=== PATIENT | female | born 1960 | race American Indian/Alaskan Native ===

== ENCOUNTER 2018-03-06 08:33 | Observation (INO) | payer OTHER ==
[2018-03-06] MEDS ORDERED: Metoprolol 1 mg/ml Inj IVP STA (08:55)
--- NOTE | 2018-03-06 09:01 | ED PDOC ---
Arrival/HPI - General Chief Complaint: Chest Pain Time Seen by Provider: 03/06/18 08:41 Historian: Patient - History of Present Illness Narrative History of Present Illness (Text): 03/06/18 08:50 58 year old female, whose PMH includes atrial fibrillation (on Aspirin and Metoprolol 25mg), who presents to the emergency department complaining of palpitations since 4 days ago. Patient reports she has been non-compliant with her medication and missed a dose on Friday causing her to experience pressure on chest. Patient denies shortness of breath, nausea, vomiting, diarrhea, abdominal pain, chills, fever, or other complaints. PMD: Dr. Knight Time/Duration: < week Symptom Onset: Gradual Symptom Course: Unchanged Quality: Pressure Context: Home Past Medical History - Provider Review Nursing Documentation Reviewed: Yes - Infectious Disease Hx of Infectious Diseases: None - Tetanus Immunization Tetanus Immunization: Unknown - Cardiac Hx Cardiac Disorders: Yes Hx Atrial Fibrillation: Yes Hx Cardiac Arrhythmia: Yes (HAD HX. A-FIB CONVERTED ON OWN TO RSR) - Pulmonary Hx Respiratory Disorders: No - Neurological Hx Neurological Disorder: No - HEENT Hx HEENT Disorder: No - Renal Hx Renal Disorder: No - Endocrine/Metabolic Hx Endocrine Disorders: No - Hematological/Oncological Hx Blood Disorders: No - Integumentary Hx Dermatological Disorder: No - Musculoskeletal/Rheumatological Hx Musculoskeletal Disorders: Yes Hx Falls: No Other/Comment: HX: LEFT KNEE SURGERY - Gastrointestinal Hx Gastrointestinal Disorders: No - Genitourinary/Gynecological Hx Genitourinary Disorders: Yes Hx Urinary Tract Infection: Yes Other/Comment: HX: SUBMUCOUS MYOMA OF UTERUS, POST COITAL BLEEDING. HX: OVERACTIVE BLADDER - Psychiatric Hx Psychophysiologic Disorder: No Hx Substance Use: No - Surgical History Hx Orthopedic Surgery: Yes (L knee) Other/Comment: HX: MYOMECTOMY - Anesthesia Hx Anesthesia: Yes Hx Anesthesia Reactions: No Hx Malignant Hyperthermia: No - Suicidal Assessment Feels Threatened In Home Enviroment: No Family/Social History - Physician Review Nursing Documentation Reviewed: Yes Family/Social History: Unknown Family HX Smoking Status: Former Smoker Hx Alcohol Use: Yes Frequency of alcohol use: Socially Hx Substance Use: No Hx Substance Use Treatment: No Allergies/Home Meds Allergies/Adverse Reactions: Allergies No Known Allergies Allergy (Verified 03/06/18 08:42) Home Medications: Home Meds Medication Instructions Recorded Confirmed RX: Aspirin [Aspirin EC] 81 mg PO DAILY 05/20/15 03/06/18 RX: Metoprolol Succinate XL 25 mg PO DAILY 05/20/15 03/06/18 [Toprol XL] Review of Systems - Review of Systems Constitutional: absent: Fevers Eyes: absent: Vision Changes Respiratory: absent: SOB, Cough Cardiovascular: Palpitations, Other (chest pressure ) Gastrointestinal: absent: Abdominal Pain, Vomiting Genitourinary Female: absent: Dysuria Musculoskeletal: absent: Back Pain Skin: absent: Rash Neurological: absent: Headache, Dizziness Endocrine: absent: Diaphoresis Physical Exam Vital Signs Reviewed: Yes Vital Signs Temp Pulse Pulse Resp BP BP Pulse Ox 03/06/18 09:18 81 15 149/83 100 03/06/18 09:00 110 H 149/83 03/06/18 08:42 98.4 F 107 H 18 146/94 H 100 Temperature: Afebrile Blood Pressure: Hypertensive Pulse: Tachycardic Respiratory Rate: Normal Appearance: Positive for: Well-Appearing, Non-Toxic, Comfortable Pain Distress: None Mental Status: Positive for: Alert and Oriented X 3 - Systems Exam Head: Present: Atraumatic, Normocephalic Pupils: Present: PERRL Extroacular Muscles: Present: EOMI Conjunctiva: Present: Normal Respiratory/Chest: Present: Clear to Auscultation, Good Air Exchange. No: Respiratory Distress, Accessory Muscle Use, Wheezes, Decreased Breath Sounds, Rales, Retracting, Rhonchi Cardiovascular: Present: Irregular Rhythm, Tachycardic. No: Regular Rate and Rhythm, Murmurs, Normal S1, S2 Abdomen: Present: Normal Bowel Sounds. No: Tenderness, Distention, Peritoneal Signs, Rebound, Guarding Lower Extremity: Present: Normal Inspection, NORMAL PULSES, Normal ROM, Neurovascularly Intact, Capillary Refill < 2 s. No: Edema, Cyanosis, Tenderness , Swelling, Erythema, Deformity Neurological: Present: GCS=15, CN II-XII Intact, Speech Normal Skin: Present: Warm, Dry, Normal Color. No: Rashes Psychiatric: Present: Alert, Oriented x 3, Normal Insight, Normal Concentration Medical Decision Making ED Course and Treatment: 03/06/18 Impression: 58 year old female with irregular heart rate and tachycardia complaining of palpitations and chest pressure since 4 days. Differential Diagnosis included but are not limited to: atrial fibrillation secondary to non compliance with medication Plan: -- EKG -- Labs -- Chest X-ray -- Lopressor -- Reassess and disposition Progress Notes: EKG: Ordered, reviewed, and independently interpreted the EKG. Rate : 105 BPM Rhythm : afib Interpretation : No ST-segment elevations or depressions, no T-wave inversions, normal intervals. Comparison : No previous EKG for comparison. 03/06/18 10:10 Patient has been getting in the ED intermittent elevations of HR to about 140' s. She gets symptomatic and then the HR comes back down to 110 and then steady in the 90's. Despite taking her meds regularly the past couple of days her HR doesn't seem to get controlled. I discussed the case with Dr. Knight who will place her on Observation for Chest Pain, Rapid Atrial Fibrillations. Requesting Dr. Jackson for Cardiology. - Lab Interpretations Lab Results: 03/06/18 09:00 03/06/18 09:00 Lab Results 03/06/18 09:00: Sodium 144, Potassium 4.2, Chloride 107, Carbon Dioxide 23, Anion Gap 18, BUN 15, Creatinine 0.6 L, Est GFR ( Amer) > 60, Est GFR ( Non-Af Amer) > 60, Random Glucose 123 H, Calcium 9.5, Magnesium 1.9, Total Bilirubin 0.4, AST 27, ALT 33, Alkaline Phosphatase 107, Lactate Dehydrogenase 548, Total Creatine Kinase 95, Troponin I < 0.01, Total Protein 7.5, Albumin 4.2 , Globulin 3.3, Albumin/Globulin Ratio 1.3 03/06/18 09:00: WBC 6.0, RBC 5.37, Hgb 13.9, Hct 41.8, MCV 77.8 L D, MCH 25.9, MCHC 33.3, RDW 13.8, Plt Count 268, MPV 10.1, Gran % 44.9 L, Lymph % (Auto) 44.4 H, Carver % (Auto) 8.5 H, Eos % (Auto) 1.7, Baso % (Auto) 0.5, Gran # 2.71, Lymph # (Auto) 2.7, Carver # (Auto) 0.5, Eos # (Auto) 0.1, Baso # (Auto) 0.03 I have reviewed the lab results: Yes - RAD Interpretation Radiology Orders: 03/06/18 08:55 CHEST PORTABLE [RAD] Stat Forensic Audit Expert: Radiologist - EKG Interpretation Interpreted by ED Physician: Yes Type: 12 lead EKG - Scribe Statement The provider has reviewed the documentation as recorded by the Dellibe Rhianna Ball Provider Scribe Attestation: All medical record entries made by the Scribe were at my direction and personally dictated by me. I have reviewed the chart and agree that the record accurately reflects my personal performance of the history, physical exam, medical decision making, and the department course for this patient. I have also personally directed, reviewed, and agree with the discharge instructions and disposition. Disposition/Present on Arrival - Present on Arrival Any Indicators Present on Arrival: No History of DVT/PE: No History of Uncontrolled Diabetes: No Urinary Catheter: No History of Decub. Ulcer: No History Surgical Site Infection Following: None - Disposition Have Diagnosis and Disposition been Completed?: Yes Diagnosis: Rapid atrial fibrillation, Chest pain Disposition: HOSPITALIZED Disposition Time: 10:11 Patient Plan: Observation Condition: FAIR Discharge Instructions (ExitCare): Chest Pain (ED) Referrals: Ehsan Knight DO [Primary Care Provider] - Follow up with primary Forms: [facility] ([place]z)
[2018-03-06 09:22] LABS: BASO # 0.03 K/mm3 (0.0-2.0); BASO % 0.5 % (0.0-3.0); EOS # 0.1 (0.0-0.7); EOS % 1.7 % (1.5-5.0); GRAN # 2.71 (1.4-6.5); GRAN % 44.9 % (50.0-68.0); HEMOGLOBIN 13.9 g/dL (12.0-16.0); LYMPH # 2.7 (1.2-3.4); LYMPH % 44.4 % (22.0-35.0); MEAN CELL VOLUME 77.8 fl (80.0-105.0); MEAN CORPUSCULAR HEMOGLOBIN 25.9 pg (25.0-35.0); MEAN CORPUSCULAR HGB CONC 33.3 g/dl (31.0-37.0); MEAN PLATELET VOLUME 10.1 fl (7.0-11.0); MONO # 0.5 (0.1-0.6); MONO % 8.5 % (1.0-6.0); RBC 5.37 10^6/uL (3.5-6.1); RED CELL DISTRIBUTION WIDTH 13.8 % (11.5-14.5)
[2018-03-06 09:38] LABS: ALB/GLOB RATIO 1.3 (1.1-1.8); ALBUMIN 4.2 g/dL (3.0-4.8); ALT/SGPT 33 U/L (7-56); AST/SGOT 27 U/L (14-36); BLOOD UREA NITROGEN 15 mg/dL (7-21); CALCIUM 9.5 mg/dL (8.4-10.5); GFR AFRICAN-AMERICAN > 60; GFR NON-AFRICAN AMERICAN > 60
[2018-03-06 09:46] LABS: TROPONIN I < 0.01 ng/mL
--- NOTE | 2018-03-06 10:19 | RAD ---
HISTORY: chest pain COMPARISON: No prior. FINDINGS: LUNGS: No active pulmonary disease. PLEURA: No significant pleural effusion identified, no pneumothorax apparent. CARDIOVASCULAR: Normal. OSSEOUS STRUCTURES: No significant abnormalities. VISUALIZED UPPER ABDOMEN: Normal. OTHER FINDINGS: None. IMPRESSION: No active disease.
[2018-03-06] MEDS: Enoxaparin 80 mg Syringe SC SCH (10:57)
[2018-03-06 14:04] VITALS: BMI 30.4
[2018-03-06] MEDS ORDERED: Pneumococcal 23-Valent Vaccine IM ONE (14:04)
--- NOTE | 2018-03-06 16:55 | CON ---
DATE: 03/06/2018 CARDIOLOGY CONSULTATION HISTORY OF PRESENT ILLNESS: The patient is a 58-year-old woman who presents with 1 week of palpitations. She was found to be in atrial fibrillation in the emergency room. PAST MEDICAL HISTORY: Notable for chronic atrial fibrillation, in which she was sent home after workup on aspirin and beta-blockers. This has been going on for 3 years. It has been well controlled until recently when the patient has been noncompliant with her medications. The patient suffers from hypertension. She also suffers from palpitations. No chest pain, no shortness of breath. She denies diabetes mellitus. No previous myocardial infarction. SOCIAL HISTORY: The patient does not smoke. REVIEW OF SYSTEMS: Review of systems was performed in detail. Other than the palpitations, there are no other symptomatology noted. PHYSICAL EXAMINATION VITAL SIGNS: Blood pressure is 145/88, heart rate is in the 90s, atrial fibrillation. NECK: Negative JVD. LUNGS: Without rales. HEART: Reveals S1 and S2. EXTREMITIES: Without edema. EKG shows atrial fibrillation with nonspecific ST-T changes. LABORATORY DATA: Laboratories were reviewed and were unremarkable. IMPRESSION: 1. Paroxysmal atrial fibrillation. 2. Noncompliance with medications. 3. History of hypertension. 4. Palpitations. PLAN: Given these findings, we will start the patient on carvedilol. Subcu Lovenox has been ordered. I have discussed her need for compliance with the patient as well as the potential complications with atrial fibrillation. If the patient does not convert, we would consider DON and cardioversion. If medication does not convert the patient in normal sinus rhythm, we will also discuss with the patient about other therapeutic modalities such as ablation. Anson Jackson MD
--- NOTE | 2018-03-06 22:34 | HP ---
HISTORY OF PRESENT ILLNESS: I was called to the ER to evaluate Ms. Amalia Weaver. She comes in, not feeling well. She is having palpitations for 4 days. She also reports being very noncompliant with her medication, although she told the ER doctor she missed Friday. She missed many more doses after that and has really been very much noncompliant on metoprolol and her aspirin which is supposed to be on for atrial fibrillation. PAST MEDICAL HISTORY: She had a history of atrial fibrillation converted onto regular sinus rhythm. She is taking metoprolol and aspirin. She had left knee surgery in the past. She has a history of submucosal myoma of the uterus, post coital bleeding, history of overactive bladder, left knee surgery, myomectomy. FAMILY HISTORY: Unknown. SOCIAL HISTORY: Former smoker. She does drink alcohol socially. No substance abuse. ALLERGIES: NO KNOWN DRUG ALLERGIES. MEDICATIONS: She is on aspirin 81 mg a day and metoprolol succinate (Toprol XL) 25 mg one daily. REVIEW OF SYSTEMS: No fevers. No acute vision changes or hearing changes. No shortness of breath or cough, but there are palpitations and occasional chest pressure. No abdominal pain, nausea, vomiting, constipation, or diarrhea. No problems urinating. No back pain. No skin rashes or ulcers that she knows of. No headaches or dizziness. No sweating. No anxiety. PHYSICAL EXAMINATION: VITAL SIGNS: She has 98.4 temperature; 107, also 110, and also 144 pulse in the ER; 146/94 blood pressure; 18 respiratory rate; 100% O2 sat on room air. GENERAL: She is well-appearing, nontoxic, comfortable, little bit concerned about the heart rate and the palpitations. She is alert and oriented x3. HEENT: Head is atraumatic, normocephalic. Extraocular muscles are intact. Pupils are equal and reactive to light. Throat is moist. NECK: Supple. HEART: Irregular rate, tachycardic. LUNGS: Decreased breath sounds, but clear to auscultation. No wheezes, no rhonchi, no rales. ABDOMEN: Soft, nontender. Positive bowel sounds. EXTREMITIES: No edema. She can move all 4 extremities. NEUROLOGIC: GCS is 15. Cranial nerves are II through XII grossly intact. Speech is normal. SKIN: Warm and dry. No apparent ulcers or rashes appreciated. PSYCHIATRIC: Alert and oriented x3. LYMPHATICS: Thyroid midline. No palpable appreciable lymphadenopathy. LABORATORY DATA: She had multiple tests. She has a 6 white count, 13.9 hemoglobin, 41.8 hematocrit with 268 platelets. Sodium 144, potassium 4.2. BUN creatinine 0.6. GFR is greater than 60. Sugar is 123. Calcium is 9.5, magnesium 1.9. Total bilirubin is 0.4, AST is 27, ALT is 33, alkaline phosphatase 107. Lactate dehydrogenase is 548. Total creatinine kinase is 95. Troponin I is less than 0.01. Total protein 7.5, albumin is 4.2. Chest x-ray was no active disease. ASSESSMENT AND PLAN: She has been being put on Betapace 80 mg twice a day by Dr. Jackson and Lovenox 70 mg subcu every 24 hours. She is in observation status right now. We are hoping to watch her on telemetry overnight to make sure she converts into regular sinus rhythm if possible, all these will kept her atrial fibrillation into a less rapid rate. The patient understands this. Rapid atrial fibrillation and also noncompliant with her medications. Ehsan Knight DO MTDD
[2018-03-07 07:01] VITALS: O2SAT 99
[2018-03-07 07:10] LABS: HEMOGLOBIN 13.2 g/dL (12.0-16.0); MEAN CELL VOLUME 78.9 fl (80.0-105.0); MEAN CORPUSCULAR HGB CONC 32.9 g/dl (31.0-37.0); RBC 5.08 10^6/uL (3.5-6.1); RED CELL DISTRIBUTION WIDTH 13.9 % (11.5-14.5); WHITE BLOOD COUNT 3.6 10^3/ul (4.5-11.0)
[2018-03-07 07:27] LABS: ALB/GLOB RATIO 1.3 (1.1-1.8); ALBUMIN 3.7 g/dL (3.0-4.8); ALT/SGPT 34 U/L (7-56); AST/SGOT 24 U/L (14-36); BLOOD UREA NITROGEN 16 mg/dL (7-21); CALCIUM 9.2 mg/dL (8.4-10.5); GFR AFRICAN-AMERICAN > 60; GFR NON-AFRICAN AMERICAN > 60
--- NOTE | 2018-03-07 09:00 | CARD ---
APPROVED REPORT EKG Measurement Heart [id number] <Conclusion> Atrial fibrillation is new PRWP, possible lead placement
[2018-03-07] MEDS: Enoxaparin 80 mg Syringe SC SCH (10:07)
[2018-03-07 12:18] VITALS: PULSE 68
--- NOTE | 2018-03-07 12:39 | CARD ---
APPROVED REPORT EXAM: Two-dimensional and M-mode echocardiogram with Doppler and color Doppler. INDICATION 2D DIMENSIONS IVSd0.6 (0.7-1.1cm)LVDd4.9 (3.9-5.9cm) PWd0.8 (0.7-1.1cm)LVDs3.1 (2.5-4.0cm) FS (%) 36.0 %LVEF (%)65.4 (>50%) M-Mode DIMENSIONS Left Atrium (MM)3.20 (2.5-4.0cm)Aortic Root3.10 (2.2-3.7cm) Aortic Cusp Exc.2.20 (1.5-2.0cm) Aortic Valve AoV Peak Nfuwkjoy108.0cm/Lee Peak GR.10mmHg Mitral Valve MV E Jnfcfogn75.6cm/sMV A Xsxyjoie75.7cm/sE/A ratio1.5 TDI Lateral E' Peak V11.70cm/sMedial E' Peak V9.46cm/sE/Lateral E'6.0 E/Medial E'7.5 Tricuspid Valve TR Peak [id number]/sRAP [id number] Peak Gr.28mmHg [id number] LEFT VENTRICLE The left ventricle is normal size. There is normal left ventricular wall thickness. The left ventricular function is normal. The left ventricular ejection fraction is within the normal range. There is normal LV segmental wall motion. The left ventricular diastolic function is normal. RIGHT VENTRICLE The right ventricle is normal size. There is normal right ventricular wall thickness. The right ventricular systolic function is normal. ATRIA The left atrium size is normal. The right atrium size is normal. AORTIC VALVE The aortic valve is normal in structure. No aortic regurgitation is present. There is no aortic valvular stenosis. MITRAL VALVE The mitral valve is normal in structure. There is no mitral valve regurgitation noted. There is no mitral valve stenosis. TRICUSPID VALVE The tricuspid valve is normal in structure. There is mild pulmonary hypertension. PULMONIC VALVE The pulmonary valve is normal in structure. There is no pulmonic valvular regurgitation. GREAT VESSELS The aortic root is normal in size. The IVC collapses <50% with inspiration. PERICARDIAL EFFUSION There is no pericardial effusion. <Conclusion> The left ventricle is normal size. There is normal left ventricular wall thickness. The left ventricular function is normal. The left ventricular ejection fraction is within the normal range. The left ventricular diastolic function is normal. There is mild pulmonary hypertension.
[2018-03-07 13:01] VITALS: BP 105/59; RESP 18; TEMP 98.4
--- NOTE | 2018-03-07 15:52 | PN ---
DATE: 03/07/[address] Anson Jackson. SUBJECTIVE: The patient did convert to sinus rhythm. The patient stated that the onset of her atrial fibrillation was Friday of last week and the patient had similar episode three years ago required no cardioversion. PHYSICAL EXAMINATION: VITAL SIGNS: Blood pressure 108/64, heart rate 60, temperature 97.8, respiration 20. HEENT: Normocephalic. CHEST: Clear. HEART: S1 and S2 regular. ABDOMEN: Soft. EXTREMITIES: No edema. LABORATORY DATA: Hemoglobin and hematocrit 15.2 and 48.1, white count 3.6, platelet count 281,000. SMA-7: Sodium 143, potassium 4.7, chloride 108, CO2 25, glucose 99, BUN 16, creatinine 0.7. Onset of troponin is negative. EKG on admission revealed rapid atrial fibrillation at the rate of 105. Poor R-wave progression. Possible lead placement. Preliminary review of the echocardiographic study revealed normal left ventricular systolic function, mild pulmonary hypertension, and normal left atrial size. ASSESSMENT: Paroxysmal atrial fibrillation. CONDITIONS: Case was discussed with the patient and with the primary physician, Dr. Knight. The patient's thyroid function test was within normal limit as an outpatient. According to the patient, I recommended oral anticoagulation for a period of 6 months. To be discontinued if there is no recurrence of atrial fibrillation. In the meantime, obtain the baseline PT/PTT. Scott Martínez MD
--- NOTE | 2018-03-08 11:16 | DS ---
HOSPITAL COURSE: She slept well last night. She converted to normal sinus rhythm. I discussed this at length with the senior patient account representative this morning. She will go home on Betapace 80 twice a day. She will be on Eliquis 5 mg twice a day and baby aspirin 81 mg daily. PHYSICAL EXAMINATION: VITAL SIGNS: She has a 97.8 temperature, 60 pulse, 108/64 blood pressure, 20 respiratory rate, 99% O2 sat on room air. HEENT: Head is atraumatic, normocephalic. HEART: Regular rate. LUNGS: Clear to auscultation. ABDOMEN: Soft. EXTREMITIES: No edema. Most important thing about this is that she must take her medications on a regular basis. She cannot be noncompliant anymore. LABORATORY DATA: She has sodium of 143, potassium 4.7, BUN 16, creatinine 0.7, GFR is greater than 60, sugar is 99, calcium is 9.2, total bili is 0.5, AST is 24, ALT is 34, alkaline phosphatase 107. Troponin I is less than 0.01, total protein 6.6. White count 3.6, hemoglobin 13.2, hematocrit 40.1, platelets of 281. ASSESSMENT AND PLAN: She is being seen by the senior patient account representative. I discussed it with him. She will be discharged to follow up in the office next week. She will be on sotalol, aspirin and Eliquis regularly. She knows not to skip anymore doses. She is on low-salt diet, low-sugar diet; exercise, walk and call me if anything changes and I will see her next week. Ehsan Knight DO
== END 2018-03-07 15:22 | disposition home or self-care (01) ==
LOC: ED 08:33 → ERH 10:45 → 2RNO 12:43
PROVIDERS: ADMIT Family Medicine; ATTEND Family Medicine
DX: I48.0 Paroxysmal atrial fibrillation (principal); I10 Essential (primary) hypertension; N32.81 Overactive bladder; R00.2 Palpitations; Z87.891 Personal history of nicotine dependence; Z87.440 Personal history of urinary (tract) infections; Z91.14 Patient's other noncompliance with medication regimen; Z79.82 Long term (current) use of aspirin
CPT/HCPCS: 36415; 71045; 80053; 82550; 83615; 83735; 84484; 85025; 85027; 93005; 93306; 96372; 99285; G0378; J1650